=== PATIENT | female | born 1985 | race Native Hawaiian/Other Pacific Islander ===

== ENCOUNTER 2017-12-23 14:36 | Emergency (ER) | payer OTHER ==
[~2017-12-23] VITALS: Ht 175.3 cm; Wt 56.7 kg
[2017-12-23 14:42] VITALS: BP 121/81; TEMP 98.8
== END 2017-12-23 15:04 | disposition home or self-care (01) ==
LOC: ED 14:36
DX: T63.441A Toxic effect of venom of bees, accidental (unintentional), initial encounter (principal); Y92.89 Other specified places as the place of occurrence of the external cause
CPT/HCPCS: 99281